=== PATIENT | male | born 2000 | race Caucasian/White ===

== ENCOUNTER 2022-07-11 02:09 | Emergency (ER) | payer SELFPAY ==
[~2022-07-11] VITALS: Ht 165.1 cm; Wt 70.3 kg
[2022-07-11 02:09] VITALS: BP 132/58
--- NOTE | 2022-07-11 02:11 | NUR ---
ANGE SABILLON, TAKEN TO CHAIR C
--- NOTE | 2022-07-11 02:11 | NUR ---
PT ANGE SABILLON, TAKEN TO CHAIR
--- NOTE | 2022-07-11 02:43 | NUR ---
Dr. Schaefer examining patient.
--- NOTE | 2022-07-11 03:11 | NUR ---
Patient D/C to custody.
[2022-07-11 03:12] VITALS: BP 132/58
== END 2022-07-11 03:11 ==
LOC: MED 02:09
DX: I10 Essential (primary) hypertension (principal); Z79.899 Other long term (current) drug therapy
CPT/HCPCS: 99283